=== PATIENT | female | born 1970 | race Caucasian/White ===

== ENCOUNTER 2018-11-18 16:12 | Emergency (ER) | payer OTHER ==
--- NOTE | 2018-11-18 16:17 | PDOC ---
Rapid Medical Evaluation Time Seen by Provider: 11/18/18 16:15 Medical Evaluation: 11/18/18 16:15 I have performed a brief in-person evaluation of this patient. The patient presents with a chief complaint of: back pain x5 months since May with R leg radiculpopathy Pertinent physical exam findings:no gross deficits, ambulates I have ordered the following: nothing Discharge Disposition - Diagnosis Lumbar radiculopathy, chronic - Referrals - Patient Instructions - Post Discharge Activity
[2018-11-18 16:20] VITALS: BP 138/86; PULSE 90; TEMP 97.9; BMI 28.3
--- NOTE | 2018-11-18 16:43 | PDOC ---
History of Present Illness - General Chief Complaint: Back Pain Stated Complaint: BACK PAIN Time Seen by Provider: 11/18/18 16:15 History Source: Patient - History of Present Illness Occurred: reports: other Severity: reports: severe Pain Location: reports: back Past History - Past Medical History Allergies/Adverse Reactions: Allergies Allergy/AdvReac Type Severity Reaction Status Date / Time diclofenac Allergy Mild Rash Verified 11/18/18 16:17 - Suicide/Smoking/Psychosocial Hx Smoking History: Never smoked Information on smoking cessation initiated: No Hx Alcohol Use: No Drug/Substance Use Hx: No Review of Systems - Review of Systems Constitutional: No: Chills, Fever, Unexplained wgt Loss ABD/GI: No: Nausea, Vomiting, Abdominal cramping : No: Burning, Dysuria, Flank Pain, Hematuria *Physical Exam - Vital Signs Last Vital Signs Temp Pulse Resp BP Pulse Ox 97.9 F 90 18 138/86 100 11/18/18 16:17 11/18/18 16:17 11/18/18 16:17 11/18/18 16:17 11/18/18 16:17 - Physical Exam General Appearance: Yes: Appropriately Dressed, Mild Distress HEENT: positive: Normal Voice Neck: positive: Supple Respiratory/Chest: negative: Respiratory Distress Gastrointestinal/Abdominal: positive: Soft. negative: Tender Musculoskeletal: positive: Vertebral Tenderness (to midline LS). negative: CVA Tenderness Integumentary: positive: Dry, Warm Neurologic: positive: Fully Oriented, Alert, Normal Mood/Affect, Motor Strength 5/5 Moderate Sedation - Procedure Monitoring Vital Signs: Procedure Monitoring Vital Signs Temperature 97.9 F 11/18/18 16:17 Pulse Rate 90 11/18/18 16:17 Respiratory Rate 18 11/18/18 16:17 Blood Pressure 138/86 11/18/18 16:17 O2 Sat by Pulse Oximetry (%) 100 11/18/18 16:17 Medical Decision Making - Medical Decision Making 11/18/18 16:41 47 yo F, endorses h/o chronic lower back pain and currently on tramadol, naproxen and motrin with no relief and now here for pain control. Pt states back pain started ~ 6 months ago and constant, now radiates to R buttocks only. No sensory changes, LE weakness or unexplained weight loss. He follows up with her primary care physician only. Denies any spinal imaging in past. No prior trauma per patient. Works as a [employer]ING [employer] but denies heavy lifting See exam Chronic LBP Not improved w/ home meds No imaging in past No red flags at this time-trauma, cauda equina, infxn, weight loss, etc -pain control in ED and reassess -anticipate dc w/ community engagement specialist for further eval 11/18/18 17:16 After given pt medications, pt requested discharge. Given spinal follow up *DC/Admit/Observation/Transfer Diagnosis at time of Disposition: Chronic lower back pain Qualifiers: Back pain laterality: unspecified Sciatica presence: without sciatica Qualified Code(s): M54.5 - Low back pain - Discharge Dispostion Disposition: HOME Condition at time of disposition: Improved - Referrals Referrals: Curtis Rodriguez MD [Primary Care Provider] - Rogerio Rey MD [Staff Physician] - - Patient Instructions Printed Discharge Instructions: DI for Low Back Pain Additional Instructions: Please take medications as directed You will need to follow up with a community engagement specialist for further reevaluation of your back pain Please follow up with Dr Rey of neurology next week - Post Discharge Activity Forms/Work/School Notes: Back to Work
[2018-11-18] MEDS ORDERED: KETOROLAC TROMETHAMINE 60 MG/2 ML VIAL IM ONE (16:44)
[2018-11-18] MEDS ORDERED: KETOROLAC TROMETHAMINE 60 MG/2 ML VIAL ONE (17:09)
== END 2018-11-18 17:28 | disposition home or self-care (01) ==
LOC: JER 16:12
PROC: 3E0233Z Introduction of Anti-inflammatory into Muscle, Percutaneous Approach (ICD-10-PCS; principal; 2018-11-18)
DX: M54.16 Radiculopathy, lumbar region (principal)
CPT/HCPCS: 96372; 99281-25

== ENCOUNTER 2022-05-03 22:57 | Emergency (ER) | payer OTHER ==
[2022-05-03 23:03] VITALS: BP 150/76; PULSE 82; RESP 19; TEMP 98.6; BMI 28.3
[2022-05-04] MEDS ORDERED: diphenhydrAMINE HCL 50 MG CAPSULE PO ONE (01:28)
[2022-05-04] MEDS ORDERED: diphenhydrAMINE HCL 25 MG CAPSULE (FP) PO ONE (01:31)
== END 2022-05-04 02:28 | disposition home or self-care (01) ==
LOC: JERFT 22:57 → JER 22:57
DX: J30.2 Other seasonal allergic rhinitis (principal)
CPT/HCPCS: 99283-25